=== PATIENT | male | born 2000 | race Hispanic/Latino ===

== ENCOUNTER 2022-07-18 11:00 | Emergency (ER) | payer OTHER ==
[~2022-07-18] VITALS: Ht 180.3 cm; Wt 158.8 kg
[2022-07-18] MEDS ORDERED: BROMFED DM COU118 ML PO (11:35)
== END 2022-07-18 11:42 | disposition home or self-care (01) ==
LOC: FSED 11:28
DX: J06.9 Acute upper respiratory infection, unspecified (principal); H92.01 Otalgia, right ear
CPT/HCPCS: 99282